=== PATIENT | female | born 1990 | race Caucasian/White ===

== ENCOUNTER 2021-01-27 04:18 | Observation (INO) ==
[2021-01-27] MEDS ORDERED: *HR* LORazepam 2 MG/ML VIAL IVP ONE (04:54)
[2021-01-27] MEDS ORDERED: 0.9 % Sodium Chloride 1,000 ML IVC ONE (04:54)
[2021-01-27] MEDS ORDERED: Isovue-370 500 ML BOTTLE IVP ONE ×2 (05:17→05:21)
[2021-01-27 06:07] LABS: Basophils # 0.1 K/mcL (0.0-0.2); Basophils % 0.6 %; Eosinophils # 0.1 K/mcL (0.0-0.6); Eosinophils % 0.7 %; Hematocrit 38.6 % (35.3-44.9); Hemoglobin 12.1 g/dL (11.5-15.4); Immature Granulocytes % 0.4 % (0-4); Lymphocytes # 2.4 K/mcL (0.6-4.6); Mean Corpuscular HGB Conc 31.3 g/dL (31.6-35.5); Mean Corpuscular Hemoglobin 25.5 pg (28.0-33.3); Mean Corpuscular Volume 81.3 fL (83.0-100.0); Monocytes # 0.7 K/mcL (0.0-1.3); Neutrophils # 7.6 K/mcL (1.6-8.9); Platelet Count 388 K/mcL (140-400); Red Blood Count 4.75 M/mcL (3.82-4.97); Red Cell Distribution Width 15.1 % (11.5-14.5); Segmented Neutrophils % 70.3 %; White Blood Count 10.8 K/mcL (4.3-11.1)
[2021-01-27] MEDS ORDERED: *HR* LORazepam 2 MG/ML VIAL IVP STA ×2 (06:16→11:39)
[2021-01-27] MEDS ORDERED: Ketorolac 15 MG/ML VIAL IVP ONE (06:16)
[2021-01-27 06:21] LABS: VBG Ionized Calcium 0.94 mmol/L (1.15-1.35)
[2021-01-27 06:28] LABS: Alanine Aminotransferase 13 Units/L (7-52); Albumin 4.2 g/dL (3.5-5.7); Albumin/Globulin Ratio 1.4 (1.1-2.2); Alkaline Phosphatase 84 Units/L (34-104); Aspartate Amino Transferase 12 Units/L (13-39); BUN/Creatinine Ratio 20 (6-26); Bilirubin,Indirect 0.2 mg/dL (0.0-1.0); Bilirubin,Total 0.2 mg/dL (0.3-1.0); Blood Urea Nitrogen 13 mg/dL (6-20); Calcium 9.3 mg/dL (8.6-10.3); Carbon Dioxide 23 mEq/L (23-29); Chloride 106 mEq/L (98-107); Creatine Kinase 67 Units/L (30-223); Ethanol < 10 mg/dL (Less than 10); Globulin 3.1 g/dL (2.4-3.5); Glucose 117 mg/dL (70-105); Osmolality,Calculated 287 (280-300); Potassium 4.1 mEq/L (3.5-5.1); Sodium 138 mEq/L (136-145); Total Protein 7.3 g/dL (6.4-8.9); Troponin I < 0.03 ng/mL (< 0.04); eGFR For African Americans > 60 (> 60); eGFR For Non-African Americans > 60 (> 60)
[2021-01-27 06:40] LABS: Thyroid Stimulating Hormone 2.918 mcIU/mL (0.340-5.600)
[2021-01-27 06:54] LABS: Bacteria,Urine Few per hpf (None-Few); Bilirubin,Urine Negative (Negative); Blood,Urine Trace (Negative); Clarity,Urine Turbid (Clear); Color,Urine Light-Yellow (Yellow); Glucose,Urine (UA) Normal (Normal); Ketones,Urine Negative (Negative); Leukocyte Esterase,Urine Negative (Negative); Mucus,Urine Few per lpf (None-Few); Nitrite,Urine Negative (Negative); Protein,Urine Negative (Neg-Trace); RBC,Urine 0-3 per hpf (0-3); Specific Gravity,Urine 1.014 (1.010-1.025); Squamous Epithelial Cell,Urine Moderate per hpf (None-Few); Urobilinogen,Urine Normal (Normal); WBC,Urine 0-3 per hpf (0-3)
[2021-01-27 07:06] LABS: Amphetamine Screen,Urine Negative ng/mL (Cutoff=1000); Barbiturate Screen,Urine Negative ng/mL (Cutoff=200); Benzodiazepines Screen,Urine Negative ng/mL (Cutoff=300); Cannabinoid Screen,Urine Negative ng/mL (Cutoff = 50); Cocaine Screen,Urine Negative ng/mL (Cutoff= 300); Opiate Screen,Urine Negative ng/mL (Cutoff=300); Phencyclidine Screen,Urine Negative ng/mL (Cutoff=25)
[2021-01-27] MEDS ORDERED: Naloxone 0.4 MG/ML INJ IVP PRN (10:21)
[2021-01-27 10:39] LABS: Red Blood Cell,CSF < 2000 RBC/mcL
[2021-01-27 10:40] LABS: Appearance,CSF Clear (Clear)
[2021-01-27 11:26] LABS: Glucose,CSF 68 mg/dL (40-70); Total Protein,CSF 27 mg/dL (15-45)
[2021-01-27] MEDS ORDERED: 0.9 % Sodium Chloride 1,000 ML IVC SCH (13:15)
[2021-01-27] MEDS ORDERED: diazePAM 10 MG/2 ML SYRINGE IVP ONE (13:35)
[2021-01-27] MEDS: 0.9 % Sodium Chloride 1,000 ML IVC SCH (14:31)
[2021-01-27] MEDS: *HR* LORazepam 2 MG/ML VIAL IVP PRN (17:32)
[2021-01-28] MEDS: *HR* LORazepam 2 MG/ML VIAL IVP PRN ×3 (02:47→17:38)
[2021-01-28] MEDS: 0.9 % Sodium Chloride 1,000 ML IVC SCH ×2 (02:49→16:32)
[2021-01-28] MEDS ORDERED: *HR* LORazepam 2 MG/ML VIAL IVP ONE ×3 (03:16→10:06)
[2021-01-28] MEDS ORDERED: diazePAM 10 MG/2 ML SYRINGE IVP ONE ×2 (03:47→10:04)
[2021-01-28] MEDS ORDERED: Cyprohepatdine 4 MG TABLET PO ONE ×2 (13:44)
[2021-01-28] MEDS: Cyprohepatdine 4 MG TABLET PO PRN (21:55)
[2021-01-28] MEDS: diazePAM 10 MG/2 ML SYRINGE IVP PRN (22:00)
[2021-01-29 05:26] LABS: BUN/Creatinine Ratio 31 (6-26); Blood Urea Nitrogen 20 mg/dL (6-20); Calcium 8.7 mg/dL (8.6-10.3); Carbon Dioxide 22 mEq/L (23-29); Chloride 111 mEq/L (98-107); Creatine Kinase 75 Units/L (30-223); Glucose 101 mg/dL (70-105); Magnesium 1.8 mg/dL (1.6-2.6); Osmolality,Calculated 291 (280-300); Potassium 4.2 mEq/L (3.5-5.1); Sodium 139 mEq/L (136-145); eGFR For African Americans > 60 (> 60); eGFR For Non-African Americans > 60 (> 60)
[2021-01-29] MEDS: 0.9 % Sodium Chloride 1,000 ML IVC SCH (06:19)
[2021-01-29] MEDS: Cyprohepatdine 4 MG TABLET PO PRN ×3 (09:51→23:30)
[2021-01-29] MEDS: Magnesium Oxide 400 MG TABLET PO SCH (13:26)
[2021-01-29] MEDS: Ondansetron 4 MG/2 ML VIAL IVP PRN (20:18)
[2021-01-30] MEDS: diazePAM 10 MG/2 ML SYRINGE IVP PRN ×2 (01:02→18:10)
[2021-01-30 03:23] LABS: BUN/Creatinine Ratio 22 (6-26); Blood Urea Nitrogen 13 mg/dL (6-20); Calcium 8.7 mg/dL (8.6-10.3); Carbon Dioxide 24 mEq/L (23-29); Chloride 107 mEq/L (98-107); Glucose 101 mg/dL (70-105); Osmolality,Calculated 286 (280-300); Potassium 4.2 mEq/L (3.5-5.1); Sodium 138 mEq/L (136-145); eGFR For African Americans > 60 (> 60); eGFR For Non-African Americans > 60 (> 60)
[2021-01-30 05:11] LABS: Bilirubin,Urine Negative (Negative); Blood,Urine Negative (Negative); Clarity,Urine Clear (Clear); Color,Urine Light-Yellow (Yellow); Glucose,Urine (UA) Normal (Normal); Ketones,Urine Negative (Negative); Leukocyte Esterase,Urine Negative (Negative); Nitrite,Urine Negative (Negative); Protein,Urine Negative (Neg-Trace); Specific Gravity,Urine 1.017 (1.010-1.025); Urobilinogen,Urine Normal (Normal)
[2021-01-30] MEDS: Cyprohepatdine 4 MG TABLET PO PRN ×3 (05:35→20:06)
[2021-01-30] MEDS: Magnesium Oxide 400 MG TABLET PO SCH (09:01)
[2021-01-30] MEDS ORDERED: Acetaminophen 325 MG TABLET PO PRN (17:49)
[2021-01-30] MEDS: Ondansetron 4 MG/2 ML VIAL IVP PRN (18:14)
[2021-01-30] MEDS ORDERED: diazePAM 10 MG/2 ML SYRINGE IVP ONE (20:46)
[2021-01-31 06:22] LABS: Basophils # 0.1 K/mcL (0.0-0.2); Basophils % 0.5 %; Eosinophils # 0.1 K/mcL (0.0-0.6); Eosinophils % 1.2 %; Hematocrit 35.7 % (35.3-44.9); Hemoglobin 10.8 g/dL (11.5-15.4); Immature Granulocytes % 0.3 % (0-4); Lymphocytes # 3.1 K/mcL (0.6-4.6); Mean Corpuscular HGB Conc 30.3 g/dL (31.6-35.5); Mean Corpuscular Hemoglobin 24.9 pg (28.0-33.3); Mean Corpuscular Volume 82.3 fL (83.0-100.0); Mean Platelet Volume 10.2 fL (9.4-12.4); Monocytes # 0.5 K/mcL (0.0-1.3); Monocytes % 4.7 %; Platelet Count 317 K/mcL (140-400); Red Blood Count 4.34 M/mcL (3.82-4.97); Red Cell Distribution Width 15.3 % (11.5-14.5); Segmented Neutrophils % 64.3 %; White Blood Count 10.8 K/mcL (4.3-11.1)
[2021-01-31 06:39] LABS: BUN/Creatinine Ratio 22 (6-26); Blood Urea Nitrogen 14 mg/dL (6-20); Calcium 8.6 mg/dL (8.6-10.3); Carbon Dioxide 28 mEq/L (23-29); Chloride 105 mEq/L (98-107); Glucose 95 mg/dL (70-105); Magnesium 2.1 mg/dL (1.6-2.6); Osmolality,Calculated 284 (280-300); Potassium 4.2 mEq/L (3.5-5.1); Sodium 137 mEq/L (136-145); eGFR For African Americans > 60 (> 60); eGFR For Non-African Americans > 60 (> 60)
[2021-01-31] MEDS: Magnesium Oxide 400 MG TABLET PO SCH (07:38)
[2021-01-31] MEDS: Cyprohepatdine 4 MG TABLET PO PRN (07:38)
[2021-01-31] MEDS ORDERED: Perflutren Lipid Microsphere 1.3 ML in 0.9 % Sodium Chloride 8.7 ML IVP PRN (07:53)
[2021-01-31] MEDS: 0.9 % Sodium Chloride 1,000 ML IVC SCH (10:31)
[2021-01-31 10:54] LABS: Urine Collection Volume RANDOM mL
[2021-01-31] MEDS ORDERED: diazePAM 10 MG/2 ML SYRINGE IVP ONE ×2 (11:43→13:29)
[2021-01-31] MEDS ORDERED: Ringers Solution, Lactated 1,000 ML IVC SCH (11:45)
[2021-01-31] MEDS ORDERED: Dexmedetomidine HCl 400 MCG/100 ML MLS IVC SCH (14:15)
[2021-01-31] MEDS ORDERED: *HR* LORazepam 2 MG/ML VIAL IVP ONE (14:30)
[2021-01-31] MEDS ORDERED: *HR* LORazepam 2 MG/ML VIAL ONE (14:32)
[2021-01-31 14:56] VITALS: TEMP 101
[2021-01-31 15:07] LABS: Basophils # 0.1 K/mcL (0.0-0.2); Basophils % 0.5 %; Eosinophils # 0.1 K/mcL (0.0-0.6); Eosinophils % 0.8 %; Hematocrit 36.8 % (35.3-44.9); Hemoglobin 11.5 g/dL (11.5-15.4); Immature Granulocytes % 0.4 % (0-4); Lymphocytes # 4.1 K/mcL (0.6-4.6); Lymphocytes % 23.9 %; Mean Corpuscular HGB Conc 31.3 g/dL (31.6-35.5); Mean Corpuscular Hemoglobin 25.3 pg (28.0-33.3); Mean Corpuscular Volume 81.1 fL (83.0-100.0); Mean Platelet Volume 10.5 fL (9.4-12.4); Monocytes # 0.9 K/mcL (0.0-1.3); Monocytes % 5.1 %; Neutrophils # 11.9 K/mcL (1.6-8.9); Platelet Count 439 K/mcL (140-400); Red Blood Count 4.54 M/mcL (3.82-4.97); Red Cell Distribution Width 15.2 % (11.5-14.5); Segmented Neutrophils % 69.3 %
[2021-01-31 15:08] LABS: White Blood Count 17.1 K/mcL (4.3-11.1)
[2021-01-31 15:09] LABS: VBG Ionized Calcium 1.12 mmol/L (1.15-1.35)
[2021-01-31 15:12] VITALS: BP 113/61; PULSE 104; O2SAT 98
[2021-01-31 15:27] LABS: BUN/Creatinine Ratio 19 (6-26); Blood Urea Nitrogen 13 mg/dL (6-20); Calcium 9.1 mg/dL (8.6-10.3); Carbon Dioxide 21 mEq/L (23-29); Chloride 105 mEq/L (98-107); Creatine Kinase 174 Units/L (30-223); Glucose 95 mg/dL (70-105); Osmolality,Calculated 284 (280-300); Phosphorous 3.2 mg/dL (2.7-4.5); Potassium 3.8 mEq/L (3.5-5.1); Sodium 137 mEq/L (136-145); eGFR For African Americans > 60 (> 60); eGFR For Non-African Americans > 60 (> 60)
[2021-01-31] MEDS ORDERED: diazePAM 10 MG/2 ML SYRINGE IVP PRN (18:00)
[2021-02-01 18:51] LABS: APTT (LE Anticoag) 36 sec (32-48); Diluted Russell Viper Venom 37 sec (33-44); PT (LE-Anticoag) 12.6 sec (12.0-15.5)
[2021-02-03 12:11] LABS: Urine Collection Volume NOT PROVIDED mL
== END 2021-01-31 15:30 | disposition short-term general hospital (02) ==
LOC: CDU 04:18 → EMEROOARM 04:18 → SUATTDRO 09:09 → CDU 09:44 → 2NENU 16:50 → ICNU 01-31 14:28
PROVIDERS: ADMIT Internal Medicine; ATTEND Internal Medicine